=== PATIENT | male | born 1950 | race Caucasian/White ===

== ENCOUNTER 2018-10-08 00:12 | Outpatient (CLI) | payer MEDICARE, BC, SELFPAY ==
--- NOTE | 2018-10-08 07:25 | MERGEMPI_ITS ---
*[facility]* *[facility]* [address] [place] [address] Myocardial Perfusion Imaging - SPECT Logan protocol Date of study: 10/08/2018 *PATIENT PRESENTATION* Height: 177.8cm (70in) Blood Pressure: Weight: 95.5kg (210lb) BSA: 2.2m^2 Referring physician: Antonio Naidu Ordering physician: Antonio Naidu Impressions: Abnormal study after pharmacologic stress. Summary: 1. Myocardial perfusion imaging: There is a large sized, severely intense, fixed defect involving the inferior, inferolateral, anterolateral, lateral, and apical wall(s). This suggests large myocardial infarction in the distribution of the left circumflex coronary artery. 2. The calculated left ventricular ejection fraction after stress: 46%. LV global systolic function is mildly reduced. Diffuse left ventricular regional motion abnormalities. 3. Stress ECG conclusions: The stress ECG is negative. Reddy treadmill score: 7. This score predicts a low risk of cardiac events. 4. Stress: The target heart rate was not achieved. The heart rate response to stress is blunted by beta blockers. There is a normal resting blood pressure with an appropriate response to stress. The patient experienced no chest pain during stress. Exercise capacity is average for age. 5. Baseline ECG: Normal ECG. 6. Treadmill exercise testing was performed using the Logan protocol. The patient exercised for 7 min 14 sec, to protocol stage 3, to a maximal work rate of 10.2mets. Exercise was terminated due to dyspnea and leg fatigue. Recommendations: Medical management is recommended. Indication: R07.9. History: REASON FOR TESTING: PATIENT HAS HAD INCREASING SOB OVER THE LAST 10 MONTHS. HE REPORTS HEAVY CHEST PRESSURE THAT STARTED APPROXIMATELY 1 MONTH AGO. CHEST PRESSURE GETS HEAVIER WITH EXERCISE. DENIES CHEST PRESSURE TODAY. SIGNIFICANT PAST MEDICAL HISTORY: ONE YEAR S/P CARDIAC STENT. SMOKING STATUS: QUIT 2013. 25 YEAR 2 PPD. EXERCISE ROUTINE: DAILY ADL'S. PMH: COPD. Asthma. Risk factors: Family history of coronary artery disease. Obesity. Dyslipidemia. Cholesterol: 161mg/dl. HDL: 34mg/dl. LDL: 103mg/dl. Triglycerides: 161mg/dl. Peripheral vascular disease. ALLERGIES: CARBAMAZEPINE. MEDICATIONS: ASPIRIN 325 MG DAILY, LEVOTHYROXINE 150 MCG DAILY, LIOTHYRONINE 37.5 MCG DAILY, MULTIVITAMIN DAILY, FISH OIL 1200 MG DAILY, ROSUVASTATIN 40 MG DAILY, NITROSTAT 0.4 MG PRN, ALLOPURINAOL 300 MG DAILY, METOPROLOL TARTRATE 25 MG BID, TOPIRAMATE 400 MG BID, TESTOSTERONE CYPIONATE 50 MG IM WEEKLY. Imaging Technique: Protocol: Logan protocol. Acquisition: Gated SPECT; 1 day - rest/stress. The patient was imaged in the supine position. Attenuation correction used. Isotope administration: - Rest. Tc[99m]-sestamibi. Dose: 10.6mCi. Injection time: 11:10 AM. Injection to stress time: 00:45. - Stress. Tc[99m]-sestamibi. Dose: 29.5mCi. Injection time: 02:30 PM. 1-2 min before end of exercise Baseline ECG: SINUS RHYTHM. HR 62 BPM. SINUS RHYTHM. HR 62 BPM. Normal ECG. Stress protocol: + +---+ +---------+ + !Stage !HR !BP (mmHg) !Symptoms !Comments ! + +---+ +---------+ + !Baseline supine !62 !118/78 (91)!---------! ! + +---+ +---------+ + !Baseline standing !63 !110/80 (90)!---------! ! + +---+ +---------+ + !Stage I; 1.7mph, !96 !110/80 (90)!---------! ! !10degrees; 3 min ! ! ! ! ! + +---+ +---------+ + !Stage II; 2.5mph, !117!140/78 (99)!---------! ! !12degrees; 3 min ! ! ! ! ! + +---+ +---------+ + !Recovery; 1 min !115!108/70 (83)!---------! ! + +---+ +---------+ + !Recovery; 3 min !90 !130/70 (90)!---------! ! + +---+ +---------+ + !Recovery; 6 min !88 !108/76 (87)!---------! ! + +---+ +---------+ + !Baseline !84 !100/70 (80)!---------! ! + +---+ +---------+ + !1 min !90 !100/70 (80)!---------!Inject Regadenoson.! + +---+ +---------+ + !2 min !93 !90/60 (70) !---------! ! + +---+ +---------+ + !3 min !92 !90/68 (75) !DIZZYNESS! ! + +---+ +---------+ + !6 min !85 !100/70 (80)!Resolved ! ! + +---+ +---------+ + * Stress results: STRESS TEST ENDED IN 7MINUTES DUE TO SOB AND LEG FATIGUE. NORMAL HEART RATE AND BLOOD PRESSURE RESPONSE TO EXERCISE. MAX HEART RATE = 129. 84 % OF TARGET HEART RATE APPROXIMATE MET'S ACHEIVED = 10.16. OCCASIONAL PVC'S IN RECOVERY. CHEST PRESSURE (2/10) AT 1 MINUTE RECOVERY CHEST PRESSURE RESOLVED AT [address]ERY. NO SIGNIFICANT ST SEGMENT CHANGES. FUNCTIONAL CAPACITY: AVERAGE FUNCTIONAL CAPACITY. TRANSITIONED PATIENT TO LEXISCAN PROTOCOL. PATIENT UNABLE TO MEET TARGET HEART RATE. LEXICAN STRESS TEST ENDED IN 7 MINUTES 14 SECONDS. NORMAL HEART RATE RESPONSE TO LEXISCAN INJECTION. MILD HYPOTENSION AT BASELINE. BLOOD PRESSURE DROPPED TO 90/68 AT 3 MINUTES POST LEXISCAN WITH SYMPTOMS OF DIZZYNESS. DIZZYNESS RESOLVED BY 6 MINUTES POST LEXISCAN INJECTION. BLOOD PRESSURE UP TO 100/70 AT THIS TIME. OCASSIONAL PVC'S NO ANGINA. NO SIGNIFICANT ST SEGMENT CHANGES. Maximal heart rate during stress was 129bpm (84% of maximal predicted heart rate). The maximal predicted heart rate was 153bpm. The target heart rate was not achieved. The heart rate response to stress is blunted by beta blockers. There is a normal resting blood pressure with an appropriate response to stress. The rate-pressure product for the peak heart rate and blood pressure was 57647it Hg/min. The patient experienced no chest pain during stress. Exercise capacity is average for age. Stress ECG: The stress ECG is negative. Reddy treadmill score: 7. This score predicts a low risk of cardiac events. Myocardial perfusion: Imaging information: gated. The image quality was good. Left ventricular size is normal. There is a large sized, severely intense, fixed defect involving the inferior, inferolateral, anterolateral, lateral, and apical wall(s). This suggests large myocardial infarction in the distribution of the left circumflex coronary artery. Ventricular Function (Wall Motion): The calculated left ventricular ejection fraction after stress: 46%. LV global systolic function is mildly reduced. Diffuse left ventricular regional motion abnormalities. Study data: Antonio Naidu MD supervised and was readily available during the procedure. This study was interpreted by [facility]. Study status: Routine. Consent: The risks, benefits, and alternatives to the procedure were explained to the patient and informed consent was obtained. Procedure: Initial setup. A baseline ECG was recorded. Surface ECG leads and manual cuff blood pressure measurements were monitored. Heart sounds: Normal. Lung sounds: Normal. Treadmill exercise testing was performed using the Logan protocol. The patient exercised for 7 min 14 sec, to protocol stage 3, to a maximal work rate of 10.2mets. Exercise was terminated due to dyspnea and leg fatigue. Study completion: All catheters inserted during the procedure were removed. The patient tolerated the procedure well and was discharged from the lab. Discharge: The patient left the laboratory in stable condition. Birthdate: Patient birthdate: 1950. Sex: Gender: male. Study date: Study date: 10/08/2018. Study time: 07:25 AM. Signature Documentation: - The imaging portion of this study was interpreted by Nuclear Fur Operator Antonio Naidu MD. - The Stress ECG portion of this study was interpreted by Antonio Naidu MD. Electronically signed by Antonio Naidu 10/08/2018 15:54
[2018-10-08] MEDS: Regadenoson 0.4 MG/5 ML SYR IVP (15:20)
== END 2018-10-08 00:32 ==
PROVIDERS: PCP Internal Medicine; Visit Provider Student in an Organized Health Care Education/Training Program
DX: R07.9 Chest pain, unspecified (principal); R94.30 Abnormal result of cardiovascular function study, unspecified; R06.02 Shortness of breath; I25.2 Old myocardial infarction; I25.119 Atherosclerotic heart disease of native coronary artery with unspecified angina pectoris; Z95.5 Presence of coronary angioplasty implant and graft; I73.9 Peripheral vascular disease, unspecified; J44.9 Chronic obstructive pulmonary disease, unspecified
CPT/HCPCS: 78452; 93016; 93018; 99214; 93017; J2785

== ENCOUNTER → 2018-10-22 11:33 | Outpatient (BNVA) | payer MEDICARE, BC, SELFPAY | PROVIDERS: PCP Internal Medicine; Visit Provider Student in an Organized Health Care Education/Training Program | DX: I25.709 Atherosclerosis of coronary artery bypass graft(s), unspecified, with unspecified angina pectoris (principal); I73.9 Peripheral vascular disease, unspecified; J44.9 Chronic obstructive pulmonary disease, unspecified; Z87.891 Personal history of nicotine dependence | CPT/HCPCS: 99214 ==

== ENCOUNTER 2018-10-28 00:54 | Outpatient (CLI) | payer MEDICARE, BC, SELFPAY ==
--- NOTE | 2018-10-28 11:45 | DI.US_ITS ---
SYMPTOMS/DIAGNOSIS: ? AAA, CORONARY ARTERY DISEASE, PVD, I25.10, ATHEROSCLEROTIC HEART DISEASE, I73.9 ULTRASOUND OF THE ABDOMINAL AORTA: The aorta shows calcification along the wall but no evidence of an aneurysm. The maximal dimension is 2.8 cm proximally. The iliac arteries are also normal in diameter proximally. IMPRESSION: Atherosclerotic changes. No evidence of abdominal aortic aneurysm.
== END 2018-10-28 01:14 ==
PROVIDERS: PCP Internal Medicine; Visit Provider Student in an Organized Health Care Education/Training Program
DX: I25.10 Atherosclerotic heart disease of native coronary artery without angina pectoris (principal); I73.9 Peripheral vascular disease, unspecified
CPT/HCPCS: 76706

== ENCOUNTER → 2019-01-21 10:39 | Outpatient (BNVA) | payer MEDICARE, BC, SELFPAY | PROVIDERS: PCP Internal Medicine; Visit Provider Student in an Organized Health Care Education/Training Program | DX: I25.10 Atherosclerotic heart disease of native coronary artery without angina pectoris (principal); Z79.01 Long term (current) use of anticoagulants; I73.9 Peripheral vascular disease, unspecified; J44.9 Chronic obstructive pulmonary disease, unspecified; Z98.61 Coronary angioplasty status; Z87.891 Personal history of nicotine dependence | CPT/HCPCS: 99215 ==

== ENCOUNTER → 2019-02-18 10:45 | Outpatient (BNVA) | payer MEDICARE, BC, SELFPAY | PROVIDERS: PCP Internal Medicine; Visit Provider Student in an Organized Health Care Education/Training Program | DX: I25.119 Atherosclerotic heart disease of native coronary artery with unspecified angina pectoris (principal); Z95.1 Presence of aortocoronary bypass graft; Z79.01 Long term (current) use of anticoagulants; R06.02 Shortness of breath; I73.9 Peripheral vascular disease, unspecified; J44.9 Chronic obstructive pulmonary disease, unspecified; Z87.891 Personal history of nicotine dependence; Z95.5 Presence of coronary angioplasty implant and graft | CPT/HCPCS: 99215 ==

== ENCOUNTER 2019-02-18 11:31 | Outpatient (CLI) | payer MEDICARE, BC, SELFPAY ==
[2019-02-18 12:12] LABS: Abs Immature Grans 0.04 k/cumm (0.0-0.09); Absolute Basophil Count 0.01 k/cumm (0.0-0.2); Absolute Eosinophil Count 0.49 k/cumm (0.0-0.7); Absolute Lymphocyte Count 2.12 k/cumm (1.2-3.4); Absolute Monocyte Count 0.44 k/cumm (0.11-0.7); Absolute Neutrophil Count 5.39 k/cumm (1.2-6.7); Basophils % 0.1; Eosinophils % 5.8; HCT 44.4 % (40.0-50.0); HGB 14.8 g/dL (13.5-17.5); Immature Grans % 0.5; Mean Corp. HGB Concentration 33.3 g/dL (32.0-36.0); Mean Corpuscular Hemoglobin 31.5 pg (27.0-33.0); Mean Corpuscular Volume 94.5 fL (80-95); Mean Platelet Volume 10.3 fL (8.0-11.0); Monocytes % 5.2; Neutrophils % 63.4; Platelet Count 219 x1000/uL (130-400); RBC Distribution Width 14.9 % (11.8-14.1); White Blood Cell Count 8.49 k/cumm (4.4-10.8)
[2019-02-18 12:17] LABS: Prothrombin Time 9.9 sec (9.3-11.0)
[2019-02-18 13:19] LABS: ALT 44 U/L (12-78); AST 27 U/L (15-37); Albumin 3.6 g/dL (3.4-5.0); Alkaline Phosphatase 54 U/L (46-116); Anion Gap 11.5 mmol/L (3-11); BUN 33 mg/dL (7-18); Bilirubin, Direct 0.09 mg/dL (0.00-0.20); Bilirubin, Total 0.3 mg/dL (0.2-1.0); CO2 22.5 mmol/L (21.0-32.0); Calcium 8.9 mg/dL (8.5-10.1); Chloride 108 mmol/L (98-107); Glucose 161 mg/dL (70-100); NT-proBNP 132 pg/mL; Potassium 4.3 mmol/L (3.5-5.1); Sodium 142 mmol/L (136-145); Total Protein 6.6 g/dL (6.4-8.2)
[2019-02-18 13:20] LABS: Troponin I < 0.02 ng/mL (0.00-0.06)
[2019-02-18 13:32] LABS: Cholesterol 159 mg/dL (50-200); HDL Cholesterol 46 mg/dL (40-60); LDL CHOLESTEROL 84 mg/dL (<100); Triglyceride 212 mg/dL (30-150)
== END 2019-02-18 11:51 ==
PROVIDERS: PCP Internal Medicine; Visit Provider Student in an Organized Health Care Education/Training Program
DX: I20.8 Other forms of angina pectoris (principal); R06.02 Shortness of breath; E78.5 Hyperlipidemia, unspecified; E03.9 Hypothyroidism, unspecified; I25.10 Atherosclerotic heart disease of native coronary artery without angina pectoris; Z95.5 Presence of coronary angioplasty implant and graft; Z79.01 Long term (current) use of anticoagulants; J44.9 Chronic obstructive pulmonary disease, unspecified; I73.9 Peripheral vascular disease, unspecified; Z95.1 Presence of aortocoronary bypass graft; I25.119 Atherosclerotic heart disease of native coronary artery with unspecified angina pectoris
CPT/HCPCS: 36415; 80048; 80061; 80076; 83721; 99215; 83880; 84484; 85025; 85610

== ENCOUNTER → 2019-03-12 10:43 | Outpatient (BNVA) | payer MEDICARE, BC, SELFPAY | PROVIDERS: PCP Internal Medicine; Visit Provider Student in an Organized Health Care Education/Training Program | DX: I25.119 Atherosclerotic heart disease of native coronary artery with unspecified angina pectoris (principal); I73.9 Peripheral vascular disease, unspecified; J44.9 Chronic obstructive pulmonary disease, unspecified; Z87.891 Personal history of nicotine dependence | CPT/HCPCS: 99214 ==

== ENCOUNTER 2019-03-13 15:20 | Outpatient (RCR) | payer MEDICARE, BC, SELFPAY | END 2019-03-22 23:59 | disposition home or self-care (01) | LOC: CR 15:20 | PROVIDERS: PCP Internal Medicine; Visit Provider Family Medicine | DX: R69 Illness, unspecified (principal) ==

== ENCOUNTER 2019-03-17 09:19 | Outpatient (RCR) | payer MEDICARE, BC, SELFPAY | END 2019-03-22 23:59 | disposition home or self-care (01) | LOC: CR 09:19 | PROVIDERS: PCP Internal Medicine; Visit Provider Family Medicine | DX: Z95.5 Presence of coronary angioplasty implant and graft (principal); Z51.89 Encounter for other specified aftercare ==

== ENCOUNTER 2019-04-20 13:33 | Outpatient (RCR) | payer MEDICARE, BC, SELFPAY | END 2019-04-22 23:59 | disposition home or self-care (01) | LOC: CR 13:33 | PROVIDERS: PCP Internal Medicine; Visit Provider Family Medicine | DX: Z95.5 Presence of coronary angioplasty implant and graft (principal); Z51.89 Encounter for other specified aftercare | CPT/HCPCS: S9472 ==

== ENCOUNTER 2019-04-27 11:18 | Outpatient (RCR) | payer MEDICARE, BC, SELFPAY | END 2019-05-23 23:59 | disposition home or self-care (01) | LOC: CR 11:18 | PROVIDERS: PCP Internal Medicine; Visit Provider Family Medicine | DX: Z95.5 Presence of coronary angioplasty implant and graft (principal); Z51.89 Encounter for other specified aftercare | CPT/HCPCS: S9472 ==

== ENCOUNTER 2019-05-24 02:07 | Outpatient (RCR) | payer MEDICARE, BC, SELFPAY | END 2019-06-22 23:59 | disposition home or self-care (01) | LOC: CR 02:07 | PROVIDERS: PCP Internal Medicine; Visit Provider Family Medicine | DX: Z95.5 Presence of coronary angioplasty implant and graft (principal); Z51.89 Encounter for other specified aftercare ==

== ENCOUNTER → 2020-04-04 10:56 | Outpatient (BNVA) | payer MEDICARE, BC, SELFPAY | PROVIDERS: PCP Internal Medicine; Referring Provider Internal Medicine; Visit Provider Internal Medicine Cardiovascular Disease | DX: I25.10 Atherosclerotic heart disease of native coronary artery without angina pectoris (principal); Z95.5 Presence of coronary angioplasty implant and graft | CPT/HCPCS: 99214 ==

== ENCOUNTER 2020-09-14 12:55 | Outpatient (REF) | payer MEDICARE, BC, SELFPAY ==
[2020-09-14 15:13] LABS: C Diff PCR Negative (Negative)
[2020-09-18 10:41] LABS: Campylobacter PCR Negative (Negative); Salmonella PCR Negative (Negative); Shiga Toxin PCR Negative (Negative); Shigella/Enteroinvasive Ecoli Negative (Negative)
== END 2020-09-14 13:15 ==
LOC: LBN 12:55
PROVIDERS: PCP Internal Medicine; Visit Provider Internal Medicine
DX: R19.7 Diarrhea, unspecified (principal)
CPT/HCPCS: 87329; 87493; 87505; 83630

== ENCOUNTER → 2021-01-20 10:45 | Outpatient (BNVA) | payer MEDICARE, BC, SELFPAY | PROVIDERS: PCP Internal Medicine; Referring Provider Internal Medicine; Visit Provider Internal Medicine Cardiovascular Disease | DX: I25.10 Atherosclerotic heart disease of native coronary artery without angina pectoris (principal); Z95.1 Presence of aortocoronary bypass graft; R06.02 Shortness of breath | CPT/HCPCS: 99214; 99213 ==

== ENCOUNTER 2021-01-26 01:36 | Outpatient (CLI) | payer MEDICARE, BC, SELFPAY ==
--- NOTE | 2021-01-26 06:30 | DI.NM_ITS ---
APPROVED REPORT Exam: Pharmacologic paired with low level exercise Patient Location: Out-Patient Room/Bed: Stress Nurse: Tata Harvey RN Ordering Provider:SCOTTY NICHOLSON, Contact Number: BMI: 29.84 Baseline Rhythm: Sinus Bradycardia Indications: DYSPNEA ON EXERTION, CORONARY ATHEROSCLEROSIS Medical History Medical History: Anxiety, Bipolar, Coronary arteriosclerosis, Depressive disorder, [facility]AN MIGUEL, Obesity, OCD, CAD, Pre-diabetes Cardiac Medications: Rosuvastatin, Metoprolol tartrate, Clopidogrel, Aspirin, Nitro SL, Fish oil Allergies: Carbamazepine Cardiac Risk Factors: FHX of CAD, Hyperlipidemia, Smoking (former) Previous Cardiac Procedures: CABG (1999), PCI w/ MAGEN (2011, 2018) Pretest Chest Pain Characteristics: No chest pain Exercise History: Sedentary Physical Disabilities: None Lung Sounds: Clear to auscultation Heart Sounds: Regular Stress Test Details Test: Pharmacologic stress was paired with low level exercise. Reason for pharmacologic stress test: T wave inversion lead III. Nuclear Acquisition: Rest Tc-99m/Stress Tc-99m 1 day Rest Isotope: Tc-99m Sestamibi. Dose: 9.1 Date: 01/26/2021 Injection Time: 0900 Stress Isotope: Tc-99m Sestamibi. Dose: 31.0 Date: 01/26/2021 Injection Time: 1020 HR Resting HR Supine: 58 bpm Max Heart Rate (APMHR): 150.527472 bpm Resting HR Standin bpm Target HR (85% APMHR): 127.962048 bpm Max HR Achieved: 110 bpm % of APMHR: 73.33 Recovery HR: 70 bpm BP Resting BP Supine: 128/70 mmHg Resting BP Standin/72 mmHg Max BP: 128/70 mmHg Recovery BP: 120/72 mmHg ECG Resting ECG: Sinus Bradycardia Ectopy: rare PVC Comment: T wave inversion in leads III, aVR, V1, V6 Stress ECG: Sinus Tachycardia, , Clear, ST Change: No significant ST segment changes noted Arrhythmia: None Comment: flipped T waves in leads III, V2, V6 at 6 min post injection, lead aVL at 7 min post injecti on Recovery ECG: Sinus Rhythm Recovery Arrhythmia: None Comment: T wave inversions returning to baseline by min 14 min post injection Clinical Stress Symptoms: Dyspnea Rate Pressure Product: 90215 Stress ECG Conclusion 1. The resting electrocardiogram showed nondiagnostic inferior and anterolateral ST-T abnormalities 2. Patient underwent low level exercise and regadenoson pharmacologic stress 3. Peak heart rate was 73% of predicted 4. Electrocardiographically the test was nondiagnostic due to inadequate heart rate 5. T wave changes were noted of unclear clinical significance 6. There was no chest pain. Dyspnea was described Stress Test Summary STAGE HR BP Symptoms NOTES Supine 58 128/70 1 min post Lexiscan injection 97 118/76 3 min post Lexiscan injection 106 110/68 moderate dyspnea 6 min post Lexiscan injection 83 116/70 9 min post Lexiscan injection 71 120/72 12 min post Lexiscan injection 70 Resolved Standing 72 120/72 Lexiscan paired with low level exercise (1.5 mph, 0% grade) and tolerated well by patient. MPI Conclusion Myocardial perfusion was abnormal. There was evidence of inferolateral infarction with minimal super imposed ischemia EF 45% Radiologist Interpretation Radiologist agrees with Data Processing Equipment Repairer's Interpretation. Radiologist Interpretation by: Kofi Kraft MD Interpretation Date/Time: 01/26/2021 15:06:57
[2021-01-26] MEDS: Regadenoson 0.4 MG/5 ML SYR IVP (10:35)
== END 2021-01-26 01:56 ==
PROVIDERS: PCP Internal Medicine; Visit Provider Internal Medicine Cardiovascular Disease
DX: I25.10 Atherosclerotic heart disease of native coronary artery without angina pectoris (principal); R06.09 Other forms of dyspnea; Z82.49 Family history of ischemic heart disease and other diseases of the circulatory system; E78.5 Hyperlipidemia, unspecified; Z87.891 Personal history of nicotine dependence; R94.39 Abnormal result of other cardiovascular function study
CPT/HCPCS: 78452; 93016; 93018; 93306; 93017; J2785

== ENCOUNTER → 2021-01-27 09:44 | Outpatient (BNVA) | payer MEDICARE, BC, SELFPAY | PROVIDERS: PCP Internal Medicine; Referring Provider Internal Medicine; Visit Provider Internal Medicine Cardiovascular Disease | DX: I25.10 Atherosclerotic heart disease of native coronary artery without angina pectoris (principal); Z71.2 Person consulting for explanation of examination or test findings | CPT/HCPCS: 99214 ==

== ENCOUNTER → 2021-05-12 12:41 | Outpatient (BNVA) | payer MEDICARE, BC, SELFPAY | PROVIDERS: PCP Internal Medicine; Referring Provider Internal Medicine; Visit Provider Internal Medicine Cardiovascular Disease | DX: I25.10 Atherosclerotic heart disease of native coronary artery without angina pectoris (principal) | CPT/HCPCS: 99213 ==

== ENCOUNTER → 2021-10-26 13:35 | Outpatient (BNVA) | payer MEDICARE, BC, SELFPAY | PROVIDERS: PCP Internal Medicine; Referring Provider Internal Medicine; Visit Provider Internal Medicine Cardiovascular Disease | DX: I25.10 Atherosclerotic heart disease of native coronary artery without angina pectoris (principal) | CPT/HCPCS: 99213 ==

== ENCOUNTER → 2022-04-26 13:28 | Outpatient (BNVA) | payer MEDICARE, BC, SELFPAY | PROVIDERS: PCP Internal Medicine; Referring Provider Internal Medicine; Visit Provider Internal Medicine Cardiovascular Disease | DX: I25.810 Atherosclerosis of coronary artery bypass graft(s) without angina pectoris (principal); Z95.5 Presence of coronary angioplasty implant and graft | CPT/HCPCS: 93005; 99213 ==

== ENCOUNTER 2022-04-26 13:29 | Outpatient (CLI) | payer MEDICARE, BC, SELFPAY ==
--- NOTE | 2022-04-26 13:15 | RT.EKG_ITS ---
APPROVED REPORT Exam: Resting ECG Reason for Exam: NPW, Baseline needed Patient Location: O HR:81 bpm ECG Measurements Heart Rate 81 AXIS WY 163 P 18 QRSd 102 QRS -8 QT 394 T 65 QTc 458 Conclusion Sinus rhythm...normal P axis, V-rate 50- 99 Multiple ventricular premature complexes...V complexes w/ short R-R intervls Poor R wave progression
== END 2022-04-26 13:30 | disposition home or self-care (01) ==
LOC: DI.CARD 13:30
PROVIDERS: PCP Internal Medicine; Visit Provider Internal Medicine Cardiovascular Disease
DX: I25.10 Atherosclerotic heart disease of native coronary artery without angina pectoris (principal); R94.31 Abnormal electrocardiogram [ECG] [EKG]; I49.3 Ventricular premature depolarization
CPT/HCPCS: 93010

== ENCOUNTER → 2023-04-25 13:35 | Outpatient (BNVA) | payer MEDICARE, BC, SELFPAY | PROVIDERS: PCP Internal Medicine; Visit Provider Internal Medicine Cardiovascular Disease | DX: I25.10 Atherosclerotic heart disease of native coronary artery without angina pectoris (principal) | CPT/HCPCS: 99213 ==

== ENCOUNTER 2023-12-20 10:19 | Outpatient (CLI) | payer MEDICARE, BC, SELFPAY ==
[2023-12-20 07:54] LABS: Calculated LDL 144 mg/dL (<100); Cholesterol 196 mg/dL (<200); HDL Cholesterol 35 mg/dL (40-60); Triglyceride 89 mg/dL (<150)
[2023-12-20 08:15] LABS: Vitamin D 25 Total 61.8 ng/mL (30-100)
[2023-12-20 08:55] LABS: Hemoglobin A1C 5.8 % (<5.7)
== END 2023-12-20 10:20 | disposition home or self-care (01) ==
LOC: LBO 10:20
PROVIDERS: PCP Internal Medicine; Visit Provider Internal Medicine
DX: R73.03 Prediabetes (principal); E55.9 Vitamin D deficiency, unspecified
CPT/HCPCS: 36415; 80061; 82306; 83036

== ENCOUNTER → 2024-01-28 03:54 | Outpatient (CLI) | payer MEDICARE, BC, SELFPAY ==
--- NOTE | 2024-01-28 | DI.MRI_ITS ---
Exam(s) MR BRAIN WO EXAM: MR BRAIN WO CLINICAL HISTORY: INJURY HEAD S09.90XA TECHNIQUE: Multiplanar multisequence MRI of the brain was performed. COMPARISON: No exams were available for comparison FINDINGS: VENTRICLES AND EXTRA AXIAL SPACES: Normal in size and morphology for the patient's age. MIDLINE SHIFT: None. CEREBRAL PARENCHYMA: No focus of restricted diffusion to suggest acute infarct. No space-occupying le pearl identified. HEMORRHAGE: None. BRAINSTEM/CEREBELLUM: Normal. CALVARIUM: Normal. VISUALIZED PARANASAL SINUSES/MASTOIDS:There is moderate mucosal thickening in the left maxillary sinu s. There is opacification of several left ethmoid air cells. There is also mild mucosal thickening in the left sphenoid and frontal sinuses. PAMUNKEY OF EDDY: Normal flow void. PITUITARY GLAND: Unremarkable. OTHER FINDINGS: None. IMPRESSION: 1. No acute intracranial process. No evidence of intracranial hemorrhage. 2. Chronic paranasal sinusitis. DATA REPOSITORY:
== END ==
PROVIDERS: PCP Physician Assistant Medical; Visit Provider Physician Assistant Medical
DX: J32.4 Chronic pansinusitis (principal)
CPT/HCPCS: 70551

== ENCOUNTER → 2024-04-14 12:51 | Outpatient (BNVA) | payer MEDICARE, BC, SELFPAY | PROVIDERS: PCP Physician Assistant Medical; Referring Provider Physician Assistant Medical; Visit Provider Nurse Practitioner Adult Health | DX: R41.3 Other amnesia (principal); Z87.820 Personal history of traumatic brain injury; G47.30 Sleep apnea, unspecified | CPT/HCPCS: 99215 ==

== ENCOUNTER 2024-04-23 08:42 | Outpatient (CLI) | payer MEDICARE, BC, SELFPAY ==
--- NOTE | 2024-04-23 08:30 | RT.EKG_ITS ---
APPROVED REPORT Exam: Resting ECG Reason for Exam: ascvd Patient Location: O HR:84 bpm ECG Measurements Heart Rate 84 AXIS OR 149 P 26 QRSd 106 QRS 2 QT 366 T 56 QTc 433 Conclusion Sinus rhythm...normal P axis, V-rate 50- 99 Ventricular premature complex...V complex w/ short R-R interval Probable left atrial enlargement...P >50mS, <-0.10mV V1 Anteroseptal infarct, old...Q >40mS, V1-V2 Baseline wander in lead(s) III
[2024-04-23 14:51] LABS: PTT Activated 25.9 sec (23.6-32.8); Prothrombin Time 10.1 sec (9.1-11.1)
[2024-04-23 14:55] LABS: BUN 24 mg/dL (7-18); CREATININE 1.2 mg/dL (0.70-1.30); Chloride 111 mmol/L (98-107); Estimated GFR 63.85 (mL/min/1.73m2); Glucose 98 mg/dL (74-106); Potassium 4.1 mmol/L (3.5-5.1); Sodium 144 mmol/L (136-145)
== END 2024-04-23 08:43 | disposition home or self-care (01) ==
LOC: DI.CARD 08:43
PROVIDERS: PCP Physician Assistant Medical; Visit Provider Internal Medicine Cardiovascular Disease
DX: I25.10 Atherosclerotic heart disease of native coronary artery without angina pectoris (principal); Z01.812 Encounter for preprocedural laboratory examination; I49.8 Other specified cardiac arrhythmias; I51.7 Cardiomegaly; I21.09 ST elevation (STEMI) myocardial infarction involving other coronary artery of anterior wall
CPT/HCPCS: 36415; 80051; 82947; 84520; 93005; 93010; 99214; 82565; 85610; 85730

== ENCOUNTER → 2024-04-23 13:38 | Outpatient (BNVA) | payer MEDICARE, BC, SELFPAY | PROVIDERS: PCP Physician Assistant Medical; Visit Provider Internal Medicine Cardiovascular Disease ==

== ENCOUNTER 2024-04-23 15:08 | Outpatient (CLI) | payer MEDICARE, BC, SELFPAY | END 2024-04-23 15:09 | disposition home or self-care (01) | LOC: LBO 15:10 | PROVIDERS: PCP Physician Assistant Medical; Visit Provider Internal Medicine Cardiovascular Disease | DX: R41.3 Other amnesia (principal) | CPT/HCPCS: 93005; 99214 ==

== ENCOUNTER → 2024-07-21 10:43 | Outpatient (BNVA) | payer MEDICARE, BC, SELFPAY | PROVIDERS: PCP Physician Assistant Medical; Referring Provider Physician Assistant Medical; Visit Provider Internal Medicine Cardiovascular Disease | DX: I25.10 Atherosclerotic heart disease of native coronary artery without angina pectoris (principal); I25.5 Ischemic cardiomyopathy | CPT/HCPCS: 99213 ==

== ENCOUNTER → 2024-08-18 09:34 | Outpatient (BNVA) | payer MEDICARE, BC, SELFPAY | PROVIDERS: PCP Physician Assistant Medical; Referring Provider Physician Assistant Medical; Visit Provider Internal Medicine Cardiovascular Disease | DX: I25.5 Ischemic cardiomyopathy (principal); I25.10 Atherosclerotic heart disease of native coronary artery without angina pectoris | CPT/HCPCS: 99213 ==

== ENCOUNTER → 2024-11-19 12:50 | Outpatient (BNVA) | payer MEDICARE, BC, SELFPAY | PROVIDERS: PCP Physician Assistant Medical; Referring Provider Physician Assistant Medical; Visit Provider Internal Medicine Cardiovascular Disease | DX: I25.5 Ischemic cardiomyopathy (principal); I25.10 Atherosclerotic heart disease of native coronary artery without angina pectoris | CPT/HCPCS: 99214 ==

== ENCOUNTER 2025-05-07 12:32 | Outpatient (CLI) | payer MEDICARE, BC, SELFPAY ==
[2025-05-10 10:37] LABS: Lyme Ab w Rflx to Lyme Confirm Negative (Negative)
== END 2025-05-07 12:33 | disposition home or self-care (01) ==
LOC: LBO 12:33
PROVIDERS: PCP Physician Assistant Medical; Visit Provider Physician Assistant Medical
DX: M25.50 Pain in unspecified joint (principal)
CPT/HCPCS: 36415; 86618

== ENCOUNTER 2025-05-14 13:28 | Outpatient (CLI) | payer MEDICARE, BC, SELFPAY ==
--- NOTE | 2025-05-14 13:15 | RT.EKG_ITS ---
APPROVED REPORT Exam: Resting ECG Reason for Exam: follow up Patient Location: O HR:54 bpm ECG Measurements Heart Rate 54 AXIS ID 165 P -5 QRSd 118 QRS -7 QT 465 T 38 QTc 441 Conclusion Sinus rhythm... Anteroseptal infarct, old...Q >40mS, V1-V2
== END 2025-05-14 13:29 | disposition home or self-care (01) ==
LOC: DI.CARD 13:29
PROVIDERS: PCP Physician Assistant Medical; Referring Provider Physician Assistant Medical; Visit Provider Internal Medicine Cardiovascular Disease
DX: I25.5 Ischemic cardiomyopathy (principal)
CPT/HCPCS: 93010

== ENCOUNTER → 2025-05-14 13:28 | Outpatient (BNVA) | payer MEDICARE, BC, SELFPAY | PROVIDERS: PCP Physician Assistant Medical; Referring Provider Physician Assistant Medical; Visit Provider Internal Medicine Cardiovascular Disease | DX: I25.5 Ischemic cardiomyopathy (principal); I25.10 Atherosclerotic heart disease of native coronary artery without angina pectoris | CPT/HCPCS: 99213; 93005 ==

== ENCOUNTER → 2025-06-29 12:50 | Outpatient (BNVA) | payer MEDICARE, BC, SELFPAY | PROVIDERS: PCP Family Medicine; Referring Provider Family Medicine; Visit Provider Internal Medicine Pulmonary Disease | DX: J90 Pleural effusion, not elsewhere classified (principal); R06.00 Dyspnea, unspecified; I25.5 Ischemic cardiomyopathy; G47.33 Obstructive sleep apnea (adult) (pediatric) | CPT/HCPCS: 76604; 99215 ==

== ENCOUNTER 2025-06-30 11:39 | Day surgery (SDC) | payer MEDICARE, BC, SELFPAY ==
--- NOTE | 2025-06-30 | DI.RAD_ITS ---
Exam(s) XR PORTABLE CHEST AP EXAM: XR PORTABLE CHEST AP CLINICAL HISTORY: Post-thoracentesis - right. TECHNIQUE: 2D digital imaging was performed. COMPARISON: None FINDINGS: Single AP portable view. There is sternotomy wires. There is also left coronary artery stent noted. Heart size is upper normal Mediastinum is not widened. Blunting of both costophrenic angles noted, right more so than left. May indicate pleural effusions. There is no airspace pulmonary edema. IMPRESSION: Small bilateral pleural effusions, right larger than left. Previous sternotomy and there is a left coronary artery stent in place DATA REPOSITORY: RADIATION DOSE DELIVERED:
[2025-06-30 12:02] VITALS: BP 143/74; PULSE 51; RESP 16; TEMP 36.1; O2SAT 98
--- NOTE | 2025-06-30 12:57 | W.PM.OP ---
Operative Note Operative Note PRE-OP DIAGNOSIS: Right pleural effusion POST-OP DIAGNOSIS: same PROCEDURE: Right thoracentesis SURGEON: Bhavin Norwood ANESTHESIA TYPE: Local By Surgeon Refer to Anesthesia Record Procedure Description: The procedure risks, benefits, and alternatives were discussed with Mr. Floyd, who understood and informed consent was obtained. Laboratory studies and radiographs were reviewed. A time-out was performed.? Bedside ultrasound was used to identify an appropriate site for thoracentesis.? The site was marked on the right posterior chest wall.? Sterile technique was used throughout the procedure.? The site was cleaned and draped in a sterile fashion.? Using a 10 cc syringe and 22 Ga needle, the skin and tract to the pleural cavity were anesthetized with 10 mL of 1% lidocaine.? Pleural fluid was obtained in the 10 cc syringe without difficulty. ?A small 2-3 mm skin incision was made at the marked site.? An 8 Fr catheter over a needle was advanced until positive fluid return.? The catheter was then advanced into the pleural space and the needle was removed.? Pleural fluid was drained without difficulty.? Post-procedure bedside ultrasound demonstrated good lung sliding.? There was minimal residual fluid remaining. 500 mL of clear, light yellow pleural fluid were removed. Samples were sent for chemistries, cell count, bacterial/fungal/afb cultures, and cytopathology. Follow-up: A chest radiograph was ordered and is pending Follow-up on pleural fluid analysis Date of Procedure: 06/30/25
--- NOTE | 2025-06-30 13:24 | PAPNONF_PTH ---
PATIENT: Andre Floyd LOC: [facility] U#:[id number] AGE/SX: 74/M ROOM: RE06/30/[address]: Bhavin Norwood : 1950 BED: DIS: 06/30/2025 SPEC #: [id number] RECD: 06/30/25 17:45 STATUS: ELIZABETH REQ #: [id number] CATHY: 06/30/25 13:[address]: Bhavin Norwood DEPT: [facility] Cytology RECD BY: Vanita Morton ENTERED: 06/30/25 17:46 SP TYPE: SUPRIYA JENKINS DR: Abel Ocampo Tissues: 1 - BODY FLUID CYTO(NOT S/U/N/EM)[facility] Procedures: BODY FLUID CYTO(NOT SPU/UR/NIP/ENDOM)[facility] Comments: [id number] (TV = 400 cc, SENT FRESH) (REFRIGERATED)
[2025-06-30 13:34] VITALS: BP 145/67; PULSE 50; RESP 16; TEMP 36.4; O2SAT 98
[2025-06-30 14:29] LABS: Polynuclear Cells 26 %
[2025-06-30 22:11] LABS: Glucose, Fluid <20 mg/dL (See Note)
[2025-07-02 11:54] LABS: Protein,Total, BF 4.5 g/dL
[2025-07-02 13:47] LABS: Lactate Dehydrogenase (LD), BF 1504 U/L
== END 2025-06-30 13:55 | disposition home or self-care (01) ==
PROVIDERS: PCP Family Medicine; Visit Provider Internal Medicine Pulmonary Disease
PROC: (CPT 32554; principal; 2025-06-30 14:30)
DX: J90 Pleural effusion, not elsewhere classified (principal)
CPT/HCPCS: 32555; 82042; 87116; 87206; 71045; 81373; 83615; 84157; 87070; 87075; 87205; 88104; 89051

== ENCOUNTER 2025-07-02 15:19 | Outpatient (CLI) | payer MEDICARE, BC, SELFPAY ==
[2025-07-02 10:28] LABS: ESR 26 mm/hr (0-20)
[2025-07-02 11:03] LABS: C-Reactive Protein 2.31 mg/dL (<or=0.5)
== END 2025-07-02 15:20 | disposition home or self-care (01) ==
LOC: LBO 15:19
PROVIDERS: PCP Family Medicine; Visit Provider Internal Medicine Pulmonary Disease
DX: J90 Pleural effusion, not elsewhere classified (principal); R06.00 Dyspnea, unspecified
CPT/HCPCS: 36415; 85652; 86200; 86038; 86140

== ENCOUNTER 2025-07-09 04:56 | Outpatient (CLI) | payer MEDICARE, BC, SELFPAY ==
--- NOTE | 2025-07-09 | DI.CT_ITS ---
Exam(s) CT CHEST WO EXAM: CT CHEST WO CLINICAL HISTORY: BILAT PLEURAL EFFUSION J90 INCIDENTAL FINDINGS SHOULDER MRI HAD CXR 06/30/25. TECHNIQUE: Imaging protocol: Axial computed tomography images were obtained and coronal and sagittal reformatted images were created and reviewed. Computer aided detection (CAD) was utilized. CONTRAST MATERIAL: Noncontrast COMPARISON: MR MRI Upper Ext Jnt Rt w/o cont from 06/21/2025 CR XR PORTABLE CHEST AP from 06/30/2025 FINDINGS: Pulmonary parenchyma: 7 x 10 by 9 millimeter nodule in the right upper lobe, suspicious. Minimal posterior bibasilar atelectasis. Interstitial changes: Mild in the upper lobes.. Emphysema: None mild Tracheobronchial tree: No mucous plugging. No bronchiectasis . Pleura: There is a small right pleural effusion. No left pleural effusion. No pneumothorax. Heart: The heart is mildly dilated. The coronary arteries show severe calcifications as well as a stent. Prior CABG. Aorta: Thoracic aorta non-dilated. Mild atherosclerotic changes. Lymph nodes: No enlarged lymph nodes. Bones: Degenerative changes are seen. No evidence of compression fracture. Upper abdomen: Unremarkable. Soft tissues: Unremarkable. IMPRESSION: 10 millimeter right upper lobe nodule. Biopsy recommended. Small right pleural effusion. Bibasilar atelectasis. Unexpected findings RADIATION DOSE DELIVERED: 216.21mGy.cm Total DLP 216.21mGy.cm Total DLP DATA REPOSITORY: All CT scans at this facility are submitted to the National Radiology Data Registry (NRDR) Dose Index Registry (DIR) with the [employer] (A[employer]). RADIATION OPTIMIZATION: All CT scans at this facility use at least one of these dose optimization techniques: automated exposure control; mA and/or kV adjustment per patient size (includes targeted exams where dose is matched to clinical indication); or iterative reconstruction.
== END 2025-07-09 05:16 ==
LOC: DI 05:00
PROVIDERS: PCP Family Medicine; Visit Provider Family Medicine
DX: J90 Pleural effusion, not elsewhere classified (principal)
CPT/HCPCS: 71250

== ENCOUNTER 2025-07-13 00:23 | Outpatient (CLI) | payer MEDICARE, BC, SELFPAY ==
[2025-07-13] MEDS: Levalbuterol HFA 15 GM INH 4 PUFF IH (10:53)
[2025-07-13] MEDS: Inhaler, Assist Device 1 EACH MC (10:53)
--- NOTE | 2025-07-14 10:40 | W.PFT ---
Date of service: 07/13/25 Time of Service: 09:54 Pulmonary Function Test Result Indications: Dyspnea Impression 1. Good patient effort was noted. ATS standards for reproducibility were met. 2. Spirometry showed mild obstructive lung disease with an FEV1 of 92% (2.63 L) 3. Following the administration of a bronchodilator there was not a significant response 4. TLC was normal. No evidence of restrictive lung disease 5. DLCO was 59%, consistent with a moderate defect in alveolar gas exchange
== END 2025-07-13 00:24 | disposition home or self-care (01) ==
LOC: RT 00:23
PROVIDERS: PCP Family Medicine; Visit Provider Internal Medicine Pulmonary Disease
DX: J90 Pleural effusion, not elsewhere classified (principal); R06.09 Other forms of dyspnea; J44.9 Chronic obstructive pulmonary disease, unspecified
CPT/HCPCS: 94060; 94726; 94729

== ENCOUNTER → 2025-08-10 14:09 | Outpatient (BNVA) | payer MEDICARE, BC, SELFPAY | PROVIDERS: PCP Family Medicine; Referring Provider Family Medicine; Visit Provider Internal Medicine Pulmonary Disease | DX: J90 Pleural effusion, not elsewhere classified (principal); J44.9 Chronic obstructive pulmonary disease, unspecified; I25.5 Ischemic cardiomyopathy; M06.9 Rheumatoid arthritis, unspecified; R91.1 Solitary pulmonary nodule; F17.211 Nicotine dependence, cigarettes, in remission | CPT/HCPCS: 99214; 76604 ==

== ENCOUNTER → 2025-09-08 11:13 | Outpatient (BNVA) | payer MEDICARE, BC, SELFPAY | PROVIDERS: PCP Family Medicine; Referring Provider Family Medicine; Visit Provider Internal Medicine Pulmonary Disease | DX: J90 Pleural effusion, not elsewhere classified (principal); R91.1 Solitary pulmonary nodule; J44.9 Chronic obstructive pulmonary disease, unspecified; Z87.891 Personal history of nicotine dependence | CPT/HCPCS: 99214; 76604 ==